=== PATIENT | male | born 1990 | race Caucasian/White ===

== ENCOUNTER 2017-09-04 16:39 | Emergency (ER) | payer OTHER ==
[~2017-09-04] VITALS: Ht 162.6 cm; Wt 79.8 kg
[2017-09-04 16:51] VITALS: BP 133/90
--- NOTE | 2017-09-04 16:55 | NUR ---
PT AMBULATED TO [facility]
--- NOTE | 2017-09-04 16:56 | NUR ---
27/M BIB [facility] C/O bilateral eye redness x2 days. SKIN IS PINK/WARM/DRY; AAOX4 WITH EVEN AND STEADY GAIT; LUNGS CLEAR BL; HR EVEN AND REGULAR; PT DENIES ANY FEVER, CP, SOB, OR COUGH AT THIS TIME; PATIENT STATES PAIN OF 0/10 AT THIS TIME.
[2017-09-04 17:01] VITALS: BP 133/90
--- NOTE | 2017-09-04 17:01 | NUR ---
Patient discharged with BP 133/[address] LEDBETTER. Written and verbal after care instructions given and explained. Patient alert, oriented and verbalized understanding of instructions. Ambulatory with steady gait. All questions addressed prior to discharge. ID band removed. Patient advised to follow up with PMD. Rx of [id number] SODIUM 10% OPH SOLUTION given. Patient educated on indication of medication including possible reaction and side effects. Opportunity to ask questions provided and answered.
== END 2017-09-04 17:01 | disposition home or self-care (01) ==
LOC: MED 16:39
DX: H10.9 Unspecified conjunctivitis (principal)
CPT/HCPCS: 99283

== ENCOUNTER 2022-10-01 18:13 | Emergency (ER) | payer OTHER ==
[~2022-10-01] VITALS: Ht 162.6 cm; Wt 87.1 kg
[2022-10-01 18:27] VITALS: BP 137/93
[2022-10-01] MEDS ORDERED: CEPH-588 PO (19:12)
[2022-10-01] MEDS ORDERED: IBUP-2213 PO (19:12)
--- NOTE | 2022-10-01 19:23 | NUR ---
Patient discharged. Written and verbal after care instructions given and explained. Patient alert, oriented and verbalized understanding of instructions. Ambulatory with steady gait. All questions addressed prior to discharge. ID band removed. Patient advised to follow up with PMD. Rx of Keflex and Ibuprofen given. Patient educated on indication of medication including possible reaction and side effects. Opportunity to ask questions provided and answered.
== END 2022-10-01 19:23 | disposition home or self-care (01) ==
LOC: MED 18:13
DX: L60.0 Ingrowing nail (principal); Z79.1 Long term (current) use of non-steroidal anti-inflammatories (NSAID); Z79.2 Long term (current) use of antibiotics
CPT/HCPCS: 99283